=== PATIENT | female | born 1985 | race Caucasian/White ===

== ENCOUNTER 2020-08-10 09:47 | Outpatient (CLI) | payer OTHER, SELFPAY ==
--- NOTE | ~2020-08-10 | US_ITS ---
Ultrasound abdomen EXAMINATION: US soft tissue head and neck DATE: 08/10/2020 10:12 INDICATION: Anterior neck mass TECHNIQUE: Multiple grayscale and Doppler ultrasound images of the anterior neck at the region of con cern were obtained. COMPARISON: None FINDINGS: Palpable abnormality of concern corresponds to a 3.0 x 0.9 x 1.9 cm cystic anechoic fluid collection along the midline at the neck located cephalad to the thyroid cartilage. There are few tiny internal echogenic foci. No solid vascular soft tissue component or surrounding hyperemia on color Doppler. IMPRESSION: 1. Nonspecific 3.0 x 0.9 x 1.9 cm midline cystic lesion at the anterior neck in classic location for a thyroglossal duct cyst. Reviewed, dictated and finalized at location A. [facility] [employer] IMPRESSION: 1. Nonspecific 3.0 x 0.9 x 1.9 cm midline cystic lesion at the anterior neck i n classic location for a thyroglossal duct cyst.
== END 2020-08-10 09:48 | disposition home or self-care (01) ==
LOC: ANHIMG 09:52
DX: R22.1 Localized swelling, mass and lump, neck (principal)
CPT/HCPCS: 76536